=== PATIENT | female | born 1965 | race Caucasian/White ===

== ENCOUNTER 2023-10-12 11:21 | Day surgery (SDC) | payer OTHER ==
[2023-09-30 16:07] LABS: Absolute Eosinophils 0.1 K/uL (0-0.5); Absolute Lymphocytes (CBC) 1.9 K/uL (0.7-4.9); Absolute Monocytes 0.4 K/uL (0.1-1.3); Absolute Neutrophil 5.6 K/uL (1.8-8.0); Basophils % 0.6 % (0-1.3); Eosinophils % 1.2 % (0-4.4); Hematocrit 40.4 % (36.0-45.0); Hemoglobin 14.2 g/dL (12.0-15.0); Lymphocytes % 23.8 % (15.3-44.8); MCH 29.9 pg (27.0-35.0); MCHC 35.2 g/dL (32.0-36.0); MCV 85.2 fL (80-100); MPV 9.1 fL (7.6-11.3); Monocytes % 5.4 % (3.3-12.3); Nucleated Red Blood Cells % 0.3 % (0-0); Platelets 248 thou/uL (152-406); RBC Red Blood Cell Count 4.74 M/uL (3.86-4.86)
[2023-09-30 16:08] LABS: PT Prothrombin Time 10.8 SECONDS (9.5-12.5); Protime INR 0.98
[2023-09-30 16:24] LABS: Anion Gap 7.5 mEq/L (5.0-15.0); Potassium 3.5 mEq/L (3.5-5.1)
--- NOTE | 2023-09-30 22:13 | RAD REPORT ---
EXAM DESCRIPTION: RAD - Chest Pa And Lat (2 Views) - 09/30/2023 3:38 pm CLINICAL HISTORY: Pre op pending surgery. History of asthma COMPARISON: Abdomen 1 View (KUB) dated 09/17/2023; Abdomen 1 View (KUB) dated 03/08/2023; Abdomen Pe lvis Wo Contrast dated 01/22/2023 TECHNIQUE: PA and lateral views of the chest were obtained. FINDINGS: The lungs are clear. Heart size is normal and central vasculature is within normal limits. No pleural effusion or pneumothorax seen. No acute bony finding noted. IMPRESSION: No acute cardiopulmonary process.
--- NOTE | 2023-10-08 17:58 | EKG ---
Test Date: 2023-09-30 Test Time: 16:23:31 Tie Hacker: OSMANI MEASUREMENT RESULTS: Intervals: Rate: 65 CA: 140 QRSD: 84 QT: 428 QTc: 445 [place]: P: 69 CA: 140 QRS: 30 T: 75 INTERPRETIVE STATEMENTS: Normal sinus rhythm Possible Left atrial enlargement Borderline ECG No previous ECG available for comparison Electronically Signed On 10-08-23 17:34:28 CDT by Jozef Benitez
[2023-10-12] MEDS: SCOPOLAMINE HYDROBROMIDE PATCH TD ONE (13:00)
--- NOTE | 2023-10-12 15:01 | RAD REPORT ---
EXAM DESCRIPTION: RAD - Urethrocystogrphy Retrograde - 10/12/2023 2:55 pm CLINICAL HISTORY: RIGHT STENT COMPARISON: No comparisons FINDINGS: Total fluoro time: 10 seconds
[2023-10-12] MEDS ORDERED: SUGAMMADEX SODIUM 200 MG/2 ML VIAL IV ONE (15:12)
[2023-10-12] MEDS ORDERED: TRAMADOL 37.5mg/APAP 325mg PER TAB ONE (16:32)
[2023-10-12] MEDS ORDERED: CIPROFLOXACIN HCL 500 MG TAB ONE (16:33)
[2023-10-12] MEDS ORDERED: PHENAZOPYRIDINE 100MG TAB PO ONE (16:33)
[2023-10-12] MEDS: TRAMADOL 37.5mg/APAP 325mg PER TAB PO ONE (16:35)
[2023-10-12] MEDS: CIPROFLOXACIN HCL 500 MG TAB PO ONE (16:35)
[2023-10-12] MEDS: PHENAZOPYRIDINE 100MG TAB PO ONE (16:35)
[2023-10-12 17:19] VITALS: BP 131/67; TEMP 96.5; O2SAT 99
--- NOTE | 2023-10-12 21:55 | OP ---
Surgeon: BENNIE SAWYER Preoperative Diagnosis: Partial right staghorn renal calculus. Postoperative Diagnosis: Partial right staghorn renal calculus. Principal Procedures: 1.Cystoscopy with right retrograde pyelography. 2.Right ureteroscopy with laser lithotripsy. 3.Right ureteral stent placement. Indication For Procedure: Ms. Anderson presented to the [facility] with history of urinary tract infection and underwent anatomic imaging revealing the presence of a partial staghorn right renal ca lculus. She presents today for definitive management of that stone if possible. Procedure In Detail: The patient was consented in the preoperative holding area before being transfe rred to the operative suite where general anesthesia was induced. She was given Ancef 1 g IV antimic robial prophylaxis, and pneumo boots were provided for DVT prophylaxis. Of note, her preop urine cul ture was no growth. She was placed in the lithotomy position, padded and secured to the table approp riately, and her genitalia was prepped with Hibiclens before being draped in standard fashion. The c ase was begun using a 22-[place] rigid cystoscope to traverse the urethra and into the bladder with ea se. The bladder was decompressed of fluid and urine and surveyed, and no papillary mucosal lesions, foreign bodies, or stones were noted. The ureteral orifices were orthotopic in location, and the rig ht ureteral orifice was cannulated requiring the use of the tip of the Sensor wire in order to gain a ccess with a 5-[place] ureteral access catheter. Right retrograde pyelography: Using a 70:30 mixture of Omnipaque and saline, contrast was injected v ia the lumen of the 5-[place]er ureteral access catheter and did propagate up the distal into the mid an d proximal ureter before entering the renal pelvis with no signs of hydronephrosis or pelvocaliectasi s. The stone was not distinctly visible fluoroscopically. As a result, I passed the Sensor wire via the 5-[place]er ureteral access catheter coiling it within the upper pole of the kidney and over the Se nsor wire, I removed the ureteral access catheter leaving the wire in place. I then utilized a dual- lumen catheter, which I passed all the way into the renal pelvis in order to dilate the ureter. Via the dual-lumen catheter, I passed a [employer] guidewire via the second lumen coiling it alongside the s afety wire in the renal pelvis. I then removed the dual-lumen catheter and utilized an 11 x 13-Frenc h ureteral access sheath, which I was only able to navigate into the distal portion of the ureter. H owever with this access through the ureteral orifice, I was able to navigate the flexible ureteroscop e all the way into the collecting system. I then surveyed through the upper and mid pole calyces bef ore encountering in the mid pole posterior calyx the beginnings of the staghorn calculus which did nate in together with extension of the calculus into the lower pole posterior and lower pole anterior samaria emy. Using 272 nm laser fiber at power setting of 0.8 joules and 15 hertz, which I increased to 1 nate ule and 15 hertz initially, I began to fragment the calculus. As I dealt with a calculus in the midp ole and the lower pole posterior, it did fragment nicely as those were largely softer components of t he stone; however, in the lower pole anterior calyx, there was a more denser component of the stone a nd at this point, I increased the power to 1.2 joules in order to completely fragment this to just th e size of the laser fiber or smaller. Once I surveyed each of the calyces again and no additional si gnificant sized stones were noted and everything was nicely fragmented, I then surveyed down the uret er from proximal into the mid and distal and found no additional calculi of significance and no evide nce of ureteral injury. As a result, I removed the ureteral access sheath and back-loaded the cystos cope over the safety wire before passing a 6-[place]er x 24 cm double-J ureteral stent with a coil obser celi fluoroscopically in the renal pelvis and 1 cystoscopically formed in the bladder. I left the bola nt on its tether, which was then secured to her introitus using Mastisol and Steri-Strips after I dec ompressed her bladder using the cystoscope. She was then taken out of the lithotomy position, awaken ed from general anesthesia, transferred to a stretcher, and then transferred to the recovery room in good condition. Complications: None. Discharge Disposition: I am going to discharge her with a prescription for ciprofloxacin 500 mg p.o. b.i.d. x5 days given the slight cloudiness of the urine observed in the kidney and the potential liliana t there might be some low colony count infection, not identified on preop urine culture. She will be given a dose of Cipro before discharge from the recovery room today. Subsequent followup should be established on Wednesday with the medical assistance to remove the tethered ureteral stent on Wednesday of this week. She should then follow up with me intervally to assess for signs of recurrent infection a nd otherwise to ensure she has no other relevant issues. She is a first time stone former. AKSHAT/JEROMY Voice ID: [id number] Report ID: [id number]
== END 2023-10-12 17:02 | disposition home or self-care (01) ==
LOC: OR 11:21
PROVIDERS: ATTEND Urology
PROC: 0T768DZ Dilation of Right Ureter with Intraluminal Device, Via Natural or Artificial Opening Endoscopic (ICD-10-PCS; 2023-10-12)
PROC: 0TF38ZZ Fragmentation in Right Kidney Pelvis, Via Natural or Artificial Opening Endoscopic (ICD-10-PCS; principal; 2023-10-12 13:15)
DX: N20.0 Calculus of kidney (principal); R39.9 Unspecified symptoms and signs involving the genitourinary system; Z87.440 Personal history of urinary (tract) infections; F41.9 Anxiety disorder, unspecified; F32.A Depression, unspecified; F43.10 Post-traumatic stress disorder, unspecified
CPT/HCPCS: 36415; 51610; 71046; 74450; 80048; 85025; 85610; 87086; 87088; 93005